=== PATIENT | male | born 1960 | race Caucasian/White ===

== ENCOUNTER 2017-03-10 13:56 | Emergency (ER) | payer OTHER ==
[~2017-03-10] VITALS: Ht 177.8 cm; Wt 103.9 kg
[2017-03-10 13:56] VITALS: BP 120/83
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
[2017-03-10] MEDS ORDERED: IV NORMAL SALINE 1,000ML 1,000 ML IV SCH (14:16)
[2017-03-10] MEDS ORDERED: ONDANSETRON PF 4 MG/2 ML VIAL. IV ONE (14:30)
[2017-03-10] MEDS: MORPHINE SULFATE 4 MG/ML DISP.SYRIN. IV/SQ PRN ×2 (14:41→15:41)
[2017-03-10] MEDS ORDERED: IOHEXOL 300 MG/ML 75 ML VIAL. IV ONE (14:45)
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
[2017-03-10] MEDS ORDERED: IV NORMAL SALINE 1,000ML 1,000 ML IV ONE (16:25)
[2017-03-10] MEDS ORDERED: fentaNYL PF 100 MCG/2 ML VIAL ONE (16:25)
[2017-03-10] MEDS ORDERED: fentaNYL PF 250 MCG/5 ML VIAL IV ONE (16:25)
[2017-03-10] MEDS ORDERED: fentaNYL PF 100 MCG/2 ML VIAL IV PRN (16:30)
== END 2017-03-10 17:07 | disposition short-term general hospital (02) ==
LOC: ER 13:56
DX: S22.5XXA Flail chest, initial encounter for closed fracture (principal); S42.101A Fracture of unspecified part of scapula, right shoulder, initial encounter for closed fracture; S27.321A Contusion of lung, unilateral, initial encounter; I10 Essential (primary) hypertension; E78.00 Pure hypercholesterolemia, unspecified; V29.9XXA Motorcycle rider (driver) (passenger) injured in unspecified traffic accident, initial encounter; Y93.55 Activity, bike riding; Y92.89 Other specified places as the place of occurrence of the external cause; Y99.8 Other external cause status; Y92.410 Unspecified street and highway as the place of occurrence of the external cause
CPT/HCPCS: 71260; 74160; 96361; 96374; 96375; 96376; 99285; J2270; J2405; J3010; Q9967; J7030